=== PATIENT | female | born 1930 | race Caucasian/White ===

== ENCOUNTER 2016-11-02 23:07 | Emergency (ER) ==
[2016-11-03 00:22] LABS: MANUAL DIFF NEEDED? NO
[2016-11-03 00:40] LABS: BASO% 0.4 % (0.0-0.8); EOS# 0.28 X1000 (0.0-0.7); EOS% 3.8 % (0.0-10.0); HEMATOCRIT 33.8 % (37.0-47.0); LYMPH% 40.9 % (20.5-51.1); MCH 29.9 PG (27-31); MCHC 32.5 g/dL (33-37); MCV 91.8 FL (81-99); MONO# 0.55 X1000 (0.11-0.59); MONO% 7.5 % (1.7-9.3); MPV 11.4 FL (7.4-10.4); NEUT% 47.4 % (42.2-75.2); PLT 169 X1000 (130-400); RBC 3.68 XMIL (4.2-5.4)
[2016-11-03 00:50] LABS: URINE MICRO REVIEW NEEDED? NO; URINE SOURCE CLEAN CATCH
[2016-11-03 00:52] LABS: BILIRUBIN URINE NEGATIVE (NEGATIVE); BLOOD URINE NEGATIVE (NEGATIVE); COLOR YELLOW; GLUCOSE URINE NEGATIVE (NEGATIVE); LEUKOCYTES URINE LARGE (NEGATIVE); NITRITE URINE POSITIVE (NEGATIVE); PH URINE 5.5; PROTEIN URINE TRACE mg/dL (NEGATIVE); SP GRAVITY URINE 1.017; TURBIDITY URINE HAZY (CLEAR); UR EPITHELIAL CELLS <10 /HPF (<10); URINE BACTERIA 4+ /HPF; URINE CULTURE NEEDED? YES; URINE RBC <10 /HPF (<10); URINE WBC TNTC /HPF (<10); UROBILINOGEN URINE NORMAL (NORMAL)
[2016-11-03 00:56] LABS: ALBUMIN 3.7 g/dL (3.5-5.0); CALCIUM 9.5 mg/dL (8.8-10.2); POTASSIUM 4.5 mmol/L (3.5-5.1); TOTAL BILIRUBIN 0.18 mg/dL (0.20-1.00); TOTAL PROTEIN 6.7 g/dL (6.3-8.3)
[2016-11-03] MEDS ORDERED: NORCO-10 PO ONE (00:57)
[2016-11-03] MEDS ORDERED: MACROBID PO ONE (01:01)
--- NOTE | 2016-11-03 01:04 | PROVIDER DOCUMENTATION ---
HPI-Headache - General Chief Complaint: Headache Stated Complaint: DIZZY Time Seen by Provider: 11/02/16 23:37 Source: patient Allergies/Adverse Reactions: Patient Allergies Allergy/AdvReac Type Severity Reaction Status Date / Time No Known Allergies Allergy Verified 07/09/15 17:45 Home Medications: Aspirin 325 mg PO DAILY 01/04/14 Calcium Carbonate [Caltrate 600] 600 mg PO BID 01/04/14 Ferrous Fumarate [Iron] 65 mg PO QAM 01/04/14 Levothyroxine [Synthroid] 50 mcg PO DAILY 01/04/14 Pregabalin [Lyrica] 75 mg PO BID 01/04/14 Famotidine [Pepcid] 20 mg PO QHS 07/29/14 Montelukast [Singulair] 10 mg PO DAILY 07/29/14 Donepezil [Aricept] 10 mg PO DAILY 07/09/15 Furosemide 40 mg PO DAILY 10/04/15 Losartan [Cozaar] 50 mg PO DAILY 10/04/15 - History of Present Illness-Headache Nature of Presenting Problem: 85 year old F presents to the ED with a cc of a headache, dizziness, and feeling like she was going to pass out. PT states it began around 2144. Denies nausea, vomiting, and syncope. Pt c/o a headache. Headache Location: reports: global Quality of Pain: reports: aching Severity: reports: mild Onset/Duration: reports: 4-6 hours ago Timing: reports: still present Headache severity at the maximum: mild Modifying Factors: improves with: nothing Associated Symptoms: reports: headache, dizziness Similar Symptoms Previously?: No Recently seen or treated by another doctor?: No Review of Systems - Adult - REVIEW OF SYSTEMS - ADULT Constitutional: denies: chills, fever Eyes: reports: no symptoms reported Ears, Nose, Mouth & Throat: reports: no symptoms reported Cardiovascular: denies: chest pain, palpitations Respiratory: denies: cough, shortness of breath Gastrointestinal: denies: abdominal pain, nausea, vomiting Genitourinary: denies: dysuria, hematuria Musculoskeletal: denies: back pain, muscle weakness Integumentary: reports: no symptoms reported Neurological: reports: dizziness/vertigo, headache/migraines Psychiatric: reports: no symptoms reported Endocrine: reports: no symptoms reported Hematologic/Lymphatic: reports: no symptoms reported Allergic/Immunologic: reports: no symptoms reported All Other Systems: Reviewed and Negative Past History - Adult - PAST MEDICAL HISTORY-ADULT Review of Records: reports: Nursing Assessment Review, Medications Reviewed Major Childhood Illnesses: reports: denies history Cardiovascular: reports: CHF, HTN, hyperlipidemia, [place] Gastrointestinal: reports: GERD Obstetrical/Gynecological: reports: other (breast cancer) Musculoskeletal: reports: arthritis (osteo) Endocrine/Immune: reports: Diabetes, thyroid disorder (hypothyroidism) Other Conditions: reports: skin disorder (skin cancer on the scalp) - PRIOR SURGERIES/PROCEDURES Surgical/Procedure History: reports: cholecystectomy, hysterectomy, other (left breast lumpectomy/skin cancer removed from scalp) - PRIOR HOSPITALIZATIONS Prior Hospitalizations: reports: none - IMMUNIZATION STATUS Childhood Immunizations: UTD Flu Vaccine: UTD - FAMILY HISTORY Family History: reviewed, not pertinent - SOCIAL HISTORY Smoking: non-smoker Substance Use: none/never Alcohol Use Frequency: never Physical Exam- Neurological - Physical Exam-Neuro Initial Vital Signs Reviewed: Yes General Appearance: appears well, alert, no apparent distress Eye Exam: bilateral eye: normal inspection, PERRL, EOMI Head Injury: no evidence of injury Respiratory: chest non-tender, lungs clear, normal breath sounds Cardiovascular: normal peripheral pulses, regular rate, rhythm, no edema Abdominal Exam: normal bowel sounds, non tender, soft Extremity: other (left CVA tenderness) nut former Exam: normal hearing, normal speech, PERRL Coordination/Gait: normal finger to nose, normal gait, negative Romberg's sign Motor/Sensory: no motor deficit, no sensory deficit, no pronator drift, negative Babinski's sign Neurologic: nut former II-XII nml as tested, no motor/sensory deficits Integumentary: normal color, normal turgor, warm/dry Psych/Mental Status: AL, normal mood/affect, normal thought content, normal thought process, oriented x 3 Progress - PLAN OF CARE/RESULTS Progress/Plan/Lab Results: plan of care: imaging, labs, medications, EKG Orders Category Date Time Status HEAD W/O CONTRAST [CT] Stat Exams 11/02/16 23:38 Taken CBC WITH ELECTRONIC DIFF [HEME] Stat Lab 11/03/16 00:10 Completed CMP [COMPREHENSIVE METABOLIC PANEL] [CHEM] Stat Lab 11/03/16 00:10 Completed UA Reflex [URINALYSIS W/POSS RFLX CULT] [URINALYSIS] Lab 11/03/16 00:38 Completed Stat Hydrocodone/APAP 10 mg/325 mg [[place]-10] Med 11/03/16 00:57 Discontinued 1 each PO NOW ONE Nitrofurantoin Burt/Macrocryst [Macrobid] Med 11/03/16 01:01 Once 100 mg PO NOW ONE EKG [EKG] Stat Ther 11/02/16 23:19 Ordered Laboratory Tests 11/03/16 11/03/16 11/03/16 00:10 00:10 00:38 WBC 7.34 RBC 3.68 L Hgb 11.0 L Hct 33.8 L MCV 91.8 MCH 29.9 MCHC 32.5 L RDW Std Deviation 14.7 H Plt Count 169 MPV 11.4 H Immature Gran % (Auto) 0.0 Neut % (Auto) 47.4 Lymph % (Auto) 40.9 [place] % (Auto) 7.5 Eos % (Auto) 3.8 Baso % (Auto) 0.4 Immature Gran # (Auto) 0.00 Neut # (Auto) 3.48 Lymph # (Auto) 3.00 [place] # (Auto) 0.55 Eos # (Auto) 0.28 Baso # (Auto) 0.03 Sodium 143 Potassium 4.5 Chloride 99 Carbon Dioxide 31 Anion Gap 13 BUN 33 H Creatinine 1.6 H Estimated GFR/1.73 m2 31 BUN/Creatinine Ratio 21 Glucose 158 H Calculated Osmolality 296 Calcium 9.5 Total Bilirubin 0.18 L AST 84 H ALT 57 H Alkaline Phosphatase 99 Total Protein 6.7 Albumin 3.7 Globulin 3.0 Albumin/Globulin Ratio 1.2 Urine Source CLEAN CATCH Urine Color YELLOW Urine Turbidity HAZY Urine pH 5.5 Ur Specific [place] 1.017 Urine Protein TRACE A Ur Glucose (Stick) NEGATIVE Ur Ketones (Stick) NEGATIVE Urine Blood NEGATIVE Urine Nitrite POSITIVE A Urine Bilirubin NEGATIVE Urobilinogen Dipstick NORMAL Urine Leukocytes LARGE A Urine WBC (Auto) TNTC A Urine RBC (Auto) <10 U Epithel Cells (Auto) <10 Urine Bacteria (Auto) 4+ Vital Signs - 24 hr 11/02/16 23:20 Temperature 98 F Pulse Rate 62 Respiratory 18 Rate Blood Pressure 144/61 O2 Sat by Pulse 98 Oximetry Pt given results and will be d/c home w/ rx to follow up with PCP. Pt verbally understood instructions. PT remained clinically stable throughout the course of the ED stay and will return if symptoms worsen. - EKG 1 Time of EKG reading by physician:: 23:20 EKG Read and Signed by:: Prakash Melo EKG Interpretation (*Must complete 3 of following elements*): Normal Rate: 62 Rhythm: NSR [place]: normal - CT/MRI 1 CT Study: Head Impression: Normal (calcified meningioma, unchanged. No acute intracranial abnormality is identified.) Departure - Departure Time of Disposition Order: 01:02 DIAGNOSIS: UTI (urinary tract infection) Qualifiers: Urinary tract infection type: acute cystitis Hematuria presence: without hematuria Qualified Code(s): N30.00 - Acute cystitis without hematuria Head ache Qualifiers: Headache type: unspecified Headache chronicity pattern: acute headache Intractability: not intractable Qualified Code(s): R51 - Headache Disposition: HOME 01 Certified Medical Emergency: Emergent Condition: Good Additional Instructions: Follow up with primary care doctor. Return to ED for any new or worsening symptoms ED Follow Up Instructions: You have been treated by a care provider in the Emergency Department. These instructions are being provided to you so you can have an understanding of how to care for yourself upon discharge. Upon discharge from the Emergency Department, you are responsible for making arrangements for follow-up care by a physician of your choice. Take all prescribed medications as directed. Return to the Emergency Department immediately for any new or worsening symptoms. You may call the Physician Referral phone number at [phone] to obtain a list of Physicians who are taking new patients. Referrals: Scooter Infante MD [Primary Care Provider] - Instructions: Migraine Headache, [id number] Attestation - Scribe Verification/Attestation Scribe:: Krystle Pang Acting as Scribe for:: Prakash Melo Scribe documention review:: This chart was documented by a scribe and accurately reflects the service the provider performed and the decisions made by the provider. Physician Attestation - Physician Attestation I, the provider, attest to the following statement:: Prakash Melo Physician documentation Attestation:: This documentation recorded by the scribe accurately reflects the service I personally performed and the decisions made by me.
[2016-11-03 01:30] VITALS: BP 142/78
--- NOTE | 2016-11-03 05:49 | EKG Report ---
Test Performed on : 11/02/2016 11:20:14 PM Test Reason : CP Blood Pressure : / mmHG Vent. Rate : 062 BPM Atrial Rate : 062 BPM P-R Int : 170 ms QRS Dur : 070 ms QT Int : 420 ms P-R-T Axes : 050 003 012 degrees QTc Int : 426 ms Normal sinus rhythm. Normal ECG When compared with ECG of 03-OCT-2015 18:08, premature atrial complexes. are no longer present Unconfirmed Result
--- NOTE | 2016-11-03 07:55 | Diag Imaging Result Document ---
PROCEDURE NAME: HEAD W/O CONTRAST - 11/02/[address]: COMPARISON: 10/03/2015. FINDINGS: Stable densely calcified meningioma at the right side of the katie and midbrain. No midline shift. No intracranial hemorrhage. The skull is intact. The sinuses, mastoids, and middle ears are clear. IMPRESSION: No acute disease or change from prior.
== END 2016-11-03 01:29 | disposition home or self-care (01) ==
LOC: ED 23:07
DX: N30.00 Acute cystitis without hematuria (principal); R51 Headache; R42 Dizziness and giddiness; I50.9 Heart failure, unspecified; I10 Essential (primary) hypertension; E78.5 Hyperlipidemia, unspecified; I25.2 Old myocardial infarction; K21.9 Gastro-esophageal reflux disease without esophagitis; Z79.899 Other long term (current) drug therapy; M19.90 Unspecified osteoarthritis, unspecified site; E11.9 Type 2 diabetes mellitus without complications; E03.9 Hypothyroidism, unspecified; Z79.82 Long term (current) use of aspirin; Z85.3 Personal history of malignant neoplasm of breast; Z85.828 Personal history of other malignant neoplasm of skin
CPT/HCPCS: 36415; 70450; 80053; 81001; 82948; 85025; 87077; 87088; 87186; 93005

== ENCOUNTER 2019-11-11 14:09 | Inpatient (IN) ==
--- NOTE | 2019-11-11 14:57 | Diag Imaging Result Doc PS360 ---
EXAM: CHEST-2 VIEWS HISTORY: sob TECHNIQUE: Two views COMPARISON: 02/20/2019 FINDINGS: Poor inspiratory effort. No cardiomegaly. There are sternal wires. Mild central vascular prominence with tiny effusions. Increased interstitial markings in the right costophrenic angle. There is a calcified granuloma in the left lung base. IMPRESSION: Mild vascular distention with a small infiltrate versus atelectasis in the right costophrenic angle Electronically signed by Franco Soto 11/11/2019 2:55 PM
--- NOTE | 2019-11-11 15:46 | PROVIDER DOCUMENTATION ---
HPI-Respiratory General - General Chief Complaint: Shortness of Breath Stated Complaint: SOB Time Seen by Provider: 11/11/19 14:30 Source: patient Allergies/Adverse Reactions: Patient Allergies Allergy/AdvReac Type Severity Reaction Status Date / Time No Known Allergies Allergy Verified 11/11/19 16:00 Home Medications: Home Medication List Medication Instructions Recorded Confirmed Last Taken Type Ferrous Fumarate [Iron] 65 mg PO HS 01/04/14 11/11/19 11/10/19 18:00 History Levothyroxine [Synthroid] 75 mcg PO AC 01/04/14 11/11/19 11/11/19 09:00 History Pregabalin [Lyrica] 75 mg PO BID 01/04/14 11/11/19 11/11/19 09:00 History Donepezil [Aricept] 10 mg PO AC 07/09/15 11/11/19 11/11/19 09:00 History Losartan [Cozaar] 50 mg PO AC 10/04/15 11/11/19 11/11/19 09:00 History Sitagliptin Phosphate [Januvia] 100 mg PO AC 11/08/18 11/11/19 11/11/19 09:00 History Aspirin 81 mg PO DAILY chewtab 02/01/19 11/11/19 11/11/19 09:00 Rx Metoprolol [Lopressor] 25 mg PO BID tab 02/01/19 11/11/19 11/11/19 09:00 Rx Montelukast [Singulair] 10 mg PO DAILY tab 02/01/19 11/11/19 11/11/19 09:00 Rx Nitroglycerin Sl [Nitroglycerin] 0.4 mg SUBLINGUAL Q5M PRN PRN tab 02/01/19 11/11/19 Unknown Rx Pantoprazole [Protonix] 40 mg PO DAILY tab 02/01/19 11/11/19 11/11/19 09:00 Rx Magnesium Oxide [Mag-Ox] 400 mg PO DAILY 11/11/19 11/11/19 11/10/19 18:00 History - History of Present Illness-Resp Nature of Presenting Problem: 88 yr old F, hx of [place] with bypass, HTN, DM, GI cancer, presents with sudden onset SOB that began yesterday while she was at rest. Pt is on room air at home, typically functions well and completes ADLs. Reports symptoms started yesterday and progressed. Denies cough or fever. Hx of pneumonia treated last year. Onset/Duration: reports: 24 hours ago Timing: reports: still present, getting worse Context: denies: recent foreign travel Exposure: reports: unknown cause Cough Quality/Degree: reports: no cough Episode Frequency: occasional episodes Current Respiratory Medication Therapy: Initiated none Modifying Factors: improves with: nothing Similar Symptoms Previously?: Yes Review of Systems - Adult - REVIEW OF SYSTEMS - ADULT Constitutional: reports: no symptoms reported Eyes: reports: no symptoms reported Ears, Nose, Mouth & Throat: reports: no symptoms reported Cardiovascular: reports: no symptoms reported Respiratory: reports: see HPI Gastrointestinal: reports: no symptoms reported Genitourinary: reports: no symptoms reported Musculoskeletal: reports: no symptoms reported Integumentary: reports: no symptoms reported Past History - Adult - PAST MEDICAL HISTORY-ADULT Review of Records: reports: Nursing Assessment Review Major Childhood Illnesses: reports: denies history Cardiovascular: reports: CHF, HTN, hyperlipidemia, [place] Respiratory: reports: denies history Gastrointestinal: reports: GERD Obstetrical/Gynecological: reports: other (breast cancer) Genitourinary: reports: denies history Musculoskeletal: reports: arthritis (osteo) Neurological: reports: denies history Endocrine/Immune: reports: Diabetes, thyroid disorder (hypothyroidism) Other Conditions: reports: skin disorder (skin cancer on the scalp) - PRIOR SURGERIES/PROCEDURES Surgical/Procedure History: reports: cholecystectomy, hysterectomy, other (left breast lumpectomy/skin cancer removed from scalp) - PRIOR HOSPITALIZATIONS Prior Hospitalizations: reports: none - IMMUNIZATION STATUS Childhood Immunizations: UTD Flu Vaccine: UTD - FAMILY HISTORY Family History: reviewed, not pertinent Physical Exam-General - PHYSICAL EXAM-ADULT Initial Vital Signs Reviewed: Yes - CONSTITUTIONAL General Appearance: appears well, alert, no apparent distress - EYES Eyes: PERRL/EOMI - HEAD, EARS, NOSE, MOUTH & THROAT HENMT: normocephalic/atraumatic, moist mucous membranes - RESPIRATORY Respiratory: chest non-tender, other (diminshed at the lung bases, clear to asucultation at the upper bases, no wheezes appreciated) - CARDIOVASCULAR Cardiovascular: regular rate, rhythm - HEART Score HEART Score: History: Slightly Suspicious HEART Score: ECG: Normal HEART Score: Age: > or = 65 Years HEART Score: Risk Factors for Atherosclerotic Disease: > or = 3 Risk Factors or History of Atherosclerotic Disease Progress - PLAN OF CARE/RESULTS Progress/Plan/Lab Results: Vital Signs - 8 hr 11/11/19 14:10 11/11/19 14:22 11/11/19 14:24 Temperature 98.2 F Pulse Rate 66 66 Respiratory Rate 18 24 Blood Pressure 161/65 166/72 O2 Sat by Pulse Oximetry 96 91 L 11/11/19 14:33 11/11/19 14:45 11/11/19 15:00 Temperature Pulse Rate 64 67 60 Respiratory Rate 23 21 18 Blood Pressure 147/65 O2 Sat by Pulse Oximetry 94 L 94 L 93 L 11/11/19 15:01 11/11/19 15:15 11/11/19 15:30 Temperature Pulse Rate 65 61 60 Respiratory Rate 16 18 25 H Blood Pressure O2 Sat by Pulse Oximetry 92 L 94 L 95 11/11/19 15:45 11/11/19 16:00 11/11/19 16:01 Temperature Pulse Rate 62 64 59 L Respiratory Rate 18 23 20 Blood Pressure 181/67 O2 Sat by Pulse Oximetry 98 98 97 11/11/19 16:15 11/11/19 16:30 11/11/19 16:45 Temperature Pulse Rate 58 L 56 L 57 L Respiratory Rate 20 17 15 Blood Pressure O2 Sat by Pulse Oximetry 97 96 97 11/11/19 16:59 11/11/19 17:01 11/11/19 17:15 Temperature Pulse Rate 59 L 58 L 54 L Respiratory Rate 23 20 20 Blood Pressure 168/64 O2 Sat by Pulse Oximetry 97 96 97 11/11/19 17:30 Temperature Pulse Rate 60 Respiratory Rate 21 Blood Pressure O2 Sat by Pulse Oximetry 95 Laboratory Results - last 24 hr 11/11/19 11/11/19 11/11/19 15:55 15:55 15:55 WBC 8.25 RBC 3.53 L Hgb 9.8 L Hct 32.2 L MCV 91.2 MCH 27.8 MCHC 30.4 L RDW Std Deviation 16.1 H Plt Count 166 MPV 11.5 H Immature Gran % (Auto) 0.0 Neut % (Auto) 65.0 Lymph % (Auto) 30.2 [place] % (Auto) 4.1 Eos % (Auto) 0.6 Baso % (Auto) 0.1 Immature Gran # (Auto) 0.00 Neut # (Auto) 5.36 Lymph # (Auto) 2.49 [place] # (Auto) 0.34 Eos # (Auto) 0.05 Baso # (Auto) 0.01 PT INR PTT (Actin FS) D-Dimer, Quantitative Sodium 144 Potassium 5.1 Chloride 108 H Carbon Dioxide 26 Anion Gap 10 BUN 19 Creatinine 1.7 H Estimated GFR/1.73 m2 28 BUN/Creatinine Ratio 11 Glucose 98 Calculated Osmolality 289 Calcium 8.7 L Total Bilirubin 0.16 L AST 20 ALT 9 L Alkaline Phosphatase 74 Creatine Kinase 67 Troponin T High Sens [id number]-Z-[id number] Pept 89209 H Total Protein 5.9 L Albumin 3.4 L Globulin 2.5 Albumin/Globulin Ratio 1.4 Urine Source Urine Color Urine Turbidity Urine pH Ur Specific [place] Urine Protein Ur Glucose (Stick) Ur Ketones (Stick) Urine Blood Urine Nitrite Urine Bilirubin Urobilinogen Dipstick Urine Leukocytes Urine WBC (Auto) Urine RBC (Auto) U Epithel Cells (Auto) Urine Bacteria (Auto) Urine Crystals Small Round Cells Urine Casts Urine Yeast-like Cells 11/11/19 11/11/19 11/11/19 15:55 15:55 16:16 WBC RBC Hgb Hct MCV MCH MCHC RDW Std Deviation Plt Count MPV Immature Gran % (Auto) Neut % (Auto) Lymph % (Auto) [place] % (Auto) Eos % (Auto) Baso % (Auto) Immature Gran # (Auto) Neut # (Auto) Lymph # (Auto) [place] # (Auto) Eos # (Auto) Baso # (Auto) PT 15.7 INR 1.23 PTT (Actin FS) 27.8 D-Dimer, Quantitative 5.02 H Sodium Potassium Chloride Carbon Dioxide Anion Gap BUN Creatinine Estimated GFR/1.73 m2 BUN/Creatinine Ratio Glucose Calculated Osmolality Calcium Total Bilirubin AST ALT Alkaline Phosphatase Creatine Kinase Troponin T High Sens 22 H* [id number]-M-[id number] Pept Total Protein Albumin Globulin Albumin/Globulin Ratio Urine Source CLEAN CATCH Urine Color YELLOW Urine Turbidity TURBID Urine pH 6.5 Ur Specific [place] 1.021 Urine Protein 100 A Ur Glucose (Stick) NEGATIVE Ur Ketones (Stick) NEGATIVE Urine Blood SMALL A Urine Nitrite POSITIVE A Urine Bilirubin NEGATIVE Urobilinogen Dipstick NORMAL Urine Leukocytes LARGE A Urine WBC (Auto) TNTC A Urine RBC (Auto) 20-40 A U Epithel Cells (Auto) <10 Urine Bacteria (Auto) 2+ Urine Crystals NONE SEEN Small Round Cells TRANS PRESENT Urine Casts NONE SEEN Urine Yeast-like Cells NONE SEEN Orders Category Date Time Status Admit - [facility] Routine AdmDCTranf 11/11/19 17:18 Active Activity - Bed Rest with BRP ORDERED Care 11/11/19 17:20 Active Call Admitting on Arrival AT ADMISSION Care 11/11/19 17:21 Active Cardiac Monitoring DIRECTED Care 11/11/19 14:15 Active Neurological Check Q4H Care 11/11/19 17:21 Active Oxygen Therapy- ED Nursing DIRECTED Care 11/11/19 14:15 Active Saline Loc NOW Care 11/11/19 14:15 Active Vital Signs Order ARRIVAL TO ROOM Care 11/11/19 17:20 Active Z-Document. for Tele Applied ORDERED Care 11/11/19 17:22 Active Heart Healthy Diet Diet 11/11/19 17:21 Active CHEST-2 VIEWS [RAD] Stat Exams 11/11/19 14:15 Completed LUNG SCAN / VQ [NM] Stat Exams 11/11/19 17:17 Taken CBC WITH ELECTRONIC DIFF [HEME] Stat Lab 11/11/19 15:55 Completed CK PROFILE [SP CHEM] Stat Lab 11/11/19 15:55 Completed COMPREHENSIVE METABOLIC PANEL [CHEM] Stat Lab 11/11/19 15:55 Completed D-DIMER [COAG] Stat Lab 11/11/19 15:55 Completed PRO B-NATRIURETIC PEPTIDE Stat Lab 11/11/19 15:55 Completed PROTIME WITH INR [COAG] Stat Lab 11/11/19 15:55 Completed PTT [COAG] Stat Lab 11/11/19 15:55 Completed TROPONIN T HIGH SENSITIVITY Stat Lab 11/11/19 15:55 Completed UA Reflex [URINALYSIS W/POSS RFLX CULT] [URINALYSIS] Lab 11/11/19 16:16 Completed Stat URINE MANUAL MICROSCOPIC [URINALYSIS] Stat Lab 11/11/19 16:16 Completed CefTRIAXONE [Rocephin] 1 gm Med 11/11/19 17:22 Discontinued 0.9% Sodium Chloride Inj [Ns] 50 ml IV NOW Furosemide [Lasix] Med 11/11/19 17:22 Discontinued 40 mg IV NOW ONE Oxygen Device Routine Oth 11/11/19 17:21 Completed Telemetry [OM.EQ] Routine Oth 11/11/19 17:20 Active EKG [EKG] Stat Ther 11/11/19 14:15 Draft Transfer/Admit Order [TRANSFER] Routine Transfer 11/11/19 17:20 Completed Pt has elevated d-dimer, as well as elevated BNP; spoke with Dr. Infante, who agrees to accept for admission - additional management to include diuresis and oxygenation; V/Q scan to be done on the floor. Pt and family made aware of findings and plan. Result Diagrams: 11/11/19 15:55 11/11/19 15:55 - CONSULTS/PCP/HOSPITALIST Notification #1 *Consult/PCP/Hospitalist*: Dr. Infante Time Discussed: 17:20 Consult Disposition: Admit Departure - Departure Date of Disposition Decision: 11/11/19 Time of Disposition Decision: 17:24 DIAGNOSIS: Elevated troponin, SOB (shortness of breath) CHF exacerbation Qualifiers: Heart failure type: unspecified Qualified Code(s): I50.9 - Heart failure, unspecified Disposition: ADMITTED INPATIENT 09 Certified Medical Emergency: Emergent Condition: Fair - Critical Care Note This patient required my direct & personal management of CC.: No Attestation - Physician/ CARMEN Attestation Patient care was provided by Advanced Practice Provider:: No The physician spent face to face time with patient:: Yes Advanced Practice Provider documentation review:: Supervising physician onsite and consulted in the evaluation and care of this patient. The physician did have a face to face encounter with the patient.
[2019-11-11 16:09] LABS: BASO# 0.01 X1000 (0.0-0.2); BASO% 0.1 % (0.0-0.8); EOS# 0.05 X1000 (0.0-0.7); EOS% 0.6 % (0.0-10.0); HEMATOCRIT 32.2 % (37.0-47.0); HEMOGLOBIN 9.8 g/dL (12.0-16.0); LYMPH# 2.49 X1000 (1.2-3.4); LYMPH% 30.2 % (20.5-51.1); MCH 27.8 PG (27-31); MCHC 30.4 g/dL (33-37); MCV 91.2 FL (81-99); MONO# 0.34 X1000 (0.11-0.59); MONO% 4.1 % (1.7-9.3); MPV 11.5 FL (7.4-10.4); NEUT# 5.36 X1000 (1.4-6.5); PLT 166 X1000 (130-400); RBC 3.53 XMIL (4.2-5.4); RDW 16.1 % (11.5-14.5); WBC 8.25 X1000 (4.8-10.8)
[2019-11-11 16:18] LABS: INR 1.23; PROTIME 15.7 Seconds (11.0-16.0)
[2019-11-11 16:19] LABS: PTT 27.8 Seconds (22.3-41.8)
[2019-11-11 16:20] LABS: URINE SOURCE CLEAN CATCH
[2019-11-11 16:30] LABS: ALB/GLOB RATIO 1.4; ALBUMIN 3.4 g/dL (3.5-5.0); CALCIUM 8.7 mg/dL (8.8-10.2); CREATININE 1.7 mg/dL (0.5-0.9); POTASSIUM 5.1 mmol/L (3.5-5.1); TOTAL BILIRUBIN 0.16 mg/dL (0.20-1.00); TOTAL PROTEIN 5.9 g/dL (6.3-8.3)
[2019-11-11 16:31] LABS: BILIRUBIN URINE NEGATIVE (NEGATIVE); BLOOD URINE SMALL (NEGATIVE); COLOR YELLOW; GLUCOSE URINE NEGATIVE (NEGATIVE); KETONE URINE NEGATIVE (NEGATIVE); LEUKOCYTES URINE LARGE (NEGATIVE); NITRITE URINE POSITIVE (NEGATIVE); PH URINE 6.5; PROTEIN URINE 100 mg/dL (NEGATIVE); SP GRAVITY URINE 1.021; TURBIDITY URINE TURBID (CLEAR); UROBILINOGEN URINE NORMAL (NORMAL)
[2019-11-11 16:38] LABS: UR EPITHELIAL CELLS <10 /HPF (<10); URINE BACTERIA 2+ /HPF; URINE RBC 20-40 /HPF (<10); URINE WBC TNTC /HPF (<10)
[2019-11-11 16:45] LABS: URINE CASTS NONE SEEN; URINE CRYSTALS NONE SEEN; URINE SMALL ROUND CELLS TRANS PRESENT; URINE YEAST NONE SEEN
--- NOTE | 2019-11-11 16:45 | EKG Report ---
Test Performed on : 11/11/2019 2:19:04 PM Test Reason : sob Blood Pressure : / mmHG Vent. Rate : 063 BPM Atrial Rate : 063 BPM P-R Int : 136 ms QRS Dur : 070 ms QT Int : 426 ms P-R-T Axes : 007 018 009 degrees QTc Int : 435 ms Sinus rhythm. with premature atrial complexes. Septal infarct , age undetermined Abnormal ECG When compared with ECG of 30-JAN-2019 07:00, premature ventricular complexes. are no longer present premature atrial complexes. are now present Septal infarct is now present Unconfirmed Result
[2019-11-11] MEDS ORDERED: LASIX IV ONE (17:22)
[2019-11-11] MEDS ORDERED: ROCEPHIN 1 GM in NS 50 ML IV ONE (17:22)
[2019-11-11 18:11] LABS: URINE SOURCE CATH
[2019-11-11 18:21] LABS: BILIRUBIN URINE NEGATIVE (NEGATIVE); BLOOD URINE SMALL (NEGATIVE); COLOR YELLOW; GLUCOSE URINE NEGATIVE (NEGATIVE); KETONE URINE TRACE mg/dL (NEGATIVE); LEUKOCYTES URINE LARGE (NEGATIVE); NITRITE URINE NEGATIVE (NEGATIVE); PH URINE 6.5; PROTEIN URINE 100 mg/dL (NEGATIVE); SP GRAVITY URINE 1.018; TURBIDITY URINE TURBID (CLEAR); UROBILINOGEN URINE NORMAL (NORMAL)
[2019-11-11 18:25] LABS: UR EPITHELIAL CELLS <10 /HPF (<10); URINE BACTERIA 4+ /HPF; URINE RBC 20-40 /HPF (<10); URINE WBC TNTC /HPF (<10)
[2019-11-11 18:34] LABS: URINE CASTS NONE SEEN; URINE CRYSTALS NONE SEEN; URINE SMALL ROUND CELLS TRANS PRESENT; URINE YEAST PRESENT
[2019-11-11] MEDS ORDERED: CATAPRES PO ONE (18:44)
--- NOTE | 2019-11-11 20:30 | Diag Imaging Result Doc PS360 ---
EXAM: LUNG SCAN / VQ HISTORY: Dyspnea, elevated creat, elevated d-dimer TECHNIQUE: Nuclear medicine ventilation/perfusion lung scan COMPARISON: Plain films taken earlier FINDINGS: 40.5 mCi DTPA used for the ventilation images. 6.1 mCi technetium MAA given intravenously for the perfusion images. Small matching defect in the right lung base. Plain film demonstrates a small infiltrate and effusion. No other perfusion defects. No ventilation perfusion mismatch. IMPRESSION: Low probability for pulmonary embolus. Electronically signed by Franco Soto 11/11/2019 8:28 PM
[2019-11-11] MEDS ORDERED: NITROGLYCERIN SL PRN (20:59)
[2019-11-11] MEDS ORDERED: XANAX PO PRN (21:03)
[2019-11-11] MEDS ORDERED: CATAPRES PO PRN (21:09)
[2019-11-11] MEDS: NORCO-5 PO PRN (22:20)
[2019-11-11] MEDS: LOPRESSOR PO SCH (22:20)
[2019-11-11] MEDS: FERROUS SULFATE PO SCH (22:20)
[2019-11-11] MEDS: LYRICA PO SCH (22:20)
--- NOTE | 2019-11-12 04:47 | HISTORY AND PHYSICAL ---
CHIEF COMPLAINT: Shortness of breath. HISTORY OF PRESENT ILLNESS: Ms Bernal, an 88-year-old white female patient, started having problem with shortness of breath last night. The patient is a vague and poor historian. The patient had shortness of breath. She was gasping for air. She was not able to speak a full sentence. The patient was managed to sleep last night and then again this morning. She was short of breath. She called her daughter. According to daughter, she was not able to talk; she was whispering and short of breath. Daughter brought her to the emergency room, evaluated by ER physician. Her D- dimer was elevated. Her proBNP was also very high. They were concerned about congestive heart failure, possible DVT and pulmonary embolism, and they decided to admit the patient for further care. The patient did have mild cough with scanty sputum production, chills, no high-grade fever. The patient had swelling in the legs, some orthopnea, but no PND. The patient was feeling weak, tired and no energy. She was getting very short of breath easily. Her oral intake was poor. No nausea or vomiting. No diarrhea, blood or mucus in the stool. The patient does have arthritic pain in the knee, at times pain in the lower back. Patient does have urinary frequency, urgency, at times mild dysuria. Urinalysis done in the ER did reveal UTI, unquantified weight loss. ALLERGIES: No known drug allergy. MEDICATIONS: Includes ferrous fumarate, Synthroid, Lyrica, Aricept, Cozaar, Januvia, metoprolol, Singulair, nitroglycerin, Protonix, magnesium oxide. Patient is on [place]. PAST MEDICAL HISTORY: Breast cancer. [place] cancer on the scalp. An IDDM, hypothyroidism. Dementia, hypertension, osteoarthritis, peripheral neuropathy, congestive heart failure, coronary artery disease, anemia, dementia, history of breast cancer. PERSONAL HISTORY: Single. Nonsmoker. Denied alcohol or substance abuse. Needs minimal assistance in activities of daily living. REVIEW OF SYSTEMS: As per HPI. Otherwise unobtainable. PHYSICAL EXAMINATION: GENERAL: Elderly white female patient in mild distress. VITAL SIGNS: Blood pressure 176/76, pulse 60, respirations 17, temperature 97.8 degrees. SKIN: Senile turgor. HEENT: Head atraumatic, normocephalic. [place] conjunctivae. Anicteric sclerae. Extraocular muscle movement normal. Fundus cannot be penetrated. Good oral hygiene. No tonsillopharyngeal congestion or exudate. Ears and nose benign. NECK: Supple. No JVD, thyromegaly or lymphadenopathy. CHEST: Bibasilar crepitation. No rales. Occasional wheezing. CARDIOVASCULAR: S1 and S2 heard. 2/6 systolic murmur at the apex. ABDOMEN: Soft, globular. Bowel sounds present. Mild hypogastric tenderness. EXTREMITIES: No cyanosis, clubbing. No acute DVT. 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 Crepitation in both the knee joints. Vague tenderness lumbosacral spine. LABORATORY DATA: Hemoglobin 9.8, hematocrit 32.2, platelet count 166,000, WBC count 8.25. D-dimer 5.02, PT/INR 1.23. BUN 19, creatinine 1.7. The troponin was 22. ProBNP 10,420. Urinalysis: Large leukocyte, wek-ctrgdsys-wk-count WBC, 20 to 40 RBC. X-RAY DATA: Chest x-ray revealed mild vascular distention with small infiltrate versus atelectasis in the right costophrenic angle. ASSESSMENT: Patient admitted with shortness of breath, sudden onset. D-dimer was elevated more than 5. We did a ventilation perfusion scan, which was low probability for pulmonary embolism. Other problems includes congestive heart failure. Her proBNP was more than 10,000. Patient does have urinary tract infection. Started her on antibiotics. Other consideration is bronchitis, early pneumonia cannot be ruled out, diabetes mellitus, hypertension, history of breast cancer, [place] cell cancer on the scalp, gastritis and reflux disease, dementia, hypomagnesemia ,hypothyroidism. PLAN: Admit the patient. IV antibiotics. Chow[place] catheter. Close observation. Overall plan discussed at length with the patient and her daughter; they are in agreement. As per the patient's and family's wishes, I am going to make her DNR 1. cc: Scooter Infante MD
[2019-11-12] MEDS: NORCO-5 PO PRN (06:05)
[2019-11-12] MEDS: JANUVIA PO SCH ×3 (06:05→12:37)
[2019-11-12] MEDS: COZAAR PO SCH ×3 (06:05→12:36)
[2019-11-12] MEDS: PRILOSEC PO SCH (06:06)
[2019-11-12] MEDS: SYNTHROID PO SCH (06:06)
[2019-11-12] MEDS: ARICEPT PO SCH ×3 (06:06→12:38)
--- NOTE | 2019-11-12 07:16 | PROGRESS NOTE ---
DATE: 11/12/2019 SUBJECTIVE: Ms. Bernal is doing better. Complaining of generalized pain. The patient was getting [place] 10 b.i.d. from her oncologist and I am going to change to [place] 10. No high-grade fever or chills. Denied any nausea or vomiting. Does get short of breath with exertion. V/Q scan results reviewed and discussed with the patient and her daughter. OBJECTIVE: Her vital signs noted. Neck: Supple. No JVD. Lungs: A few basilar crepitations. Heart: S1 and S2 heard. Abdomen: Soft, globular. Bowel sounds present. Extremities: No cyanosis, clubbing. No acute DVT. FEATHER WASHER: Alert, awake. Able to move all 4 limbs. Laboratory Data: Ordered for this morning. Results are pending. I am going to continue IV antibiotics. We will follow culture results. Gave her IV Lasix. Continue rest of the treatment and close observation. PROBLEM LIST: Includes: 1. Urinary tract infection. 2. Congestive heart failure. 3. Hypertension, improved. 4. Elevated D-dimer but V/Q negative for pulmonary embolism. 5. Rhinitis. 6. The patient does have a history of hypomagnesemia. I am going to check magnesium level. 7. History of diabetes. 8. Peripheral neuropathy, on Lyrica. Overall plan discussed. cc: Scooter Infante MD
[2019-11-12 07:32] LABS: BASO# 0.03 X1000 (0.0-0.2); BASO% 0.4 % (0.0-0.8); EOS# 0.15 X1000 (0.0-0.7); EOS% 2.1 % (0.0-10.0); HEMATOCRIT 29.7 % (37.0-47.0); LYMPH# 3.35 X1000 (1.2-3.4); LYMPH% 46.7 % (20.5-51.1); MCH 27.6 PG (27-31); MCHC 30.3 g/dL (33-37); MCV 91.1 FL (81-99); MONO# 0.33 X1000 (0.11-0.59); MONO% 4.6 % (1.7-9.3); NEUT# 3.31 X1000 (1.4-6.5); NEUT% 46.2 % (42.2-75.2); PLT 151 X1000 (130-400); RBC 3.26 XMIL (4.2-5.4); RDW 15.9 % (11.5-14.5); WBC 7.17 X1000 (4.8-10.8)
[2019-11-12 07:44] LABS: HEMOGLOBIN A1C 5.6 % (4.8-6.0)
[2019-11-12 07:56] LABS: ALB/GLOB RATIO 1.2; ALBUMIN 3.1 g/dL (3.5-5.0); CALCIUM 8.6 mg/dL (8.8-10.2); CREATININE 1.6 mg/dL (0.5-0.9); MAGNESIUM 1.4 mg/dL (1.5-2.7); POTASSIUM 4.4 mmol/L (3.5-5.1); TOTAL BILIRUBIN 0.3 mg/dL (0.20-1.00); TOTAL PROTEIN 5.7 g/dL (6.3-8.3)
[2019-11-12 08:03] LABS: FREE T4 1.43 ng/dL (0.93-1.70); TSH 0.63 uIUmL (0.27-4.20)
[2019-11-12] MEDS ORDERED: MAG-OX PO SCH (09:00)
[2019-11-12] MEDS ORDERED: LASIX IV ONE (09:00)
[2019-11-12] MEDS: NORCO-10 PO SCH ×2 (09:02→20:16)
[2019-11-12] MEDS: LYRICA PO SCH ×2 (09:04→20:16)
[2019-11-12] MEDS: SINGULAIR PO SCH (09:04)
[2019-11-12] MEDS: LOPRESSOR PO SCH ×2 (09:04→20:16)
[2019-11-12] MEDS: ASPIRIN PO SCH (09:04)
[2019-11-12] MEDS ORDERED: ZOFRAN IV PRN (12:14)
[2019-11-12] MEDS: ROCEPHIN 1 GM in NS 50 ML IV SCH (17:30)
[2019-11-12] MEDS: FERROUS SULFATE PO SCH (20:16)
[2019-11-13] MEDS: COZAAR PO SCH ×2 (06:39→10:14)
[2019-11-13] MEDS: PRILOSEC PO SCH (06:39)
[2019-11-13] MEDS: SYNTHROID PO SCH (06:39)
[2019-11-13] MEDS: ARICEPT PO SCH ×2 (06:40→10:15)
--- NOTE | 2019-11-13 07:44 | PROGRESS NOTE ---
DATE: 11/13/2019 SUBJECTIVE: Ms. Bernal is doing better. She denied any high-grade fever or chills. Complaining of soreness in the left leg. No leg swelling. Yesterday, the patient did have some nausea. We treated her symptomatically. Her urine culture is growing gram-negative rods. ID and sensitivity is pending. OBJECTIVE: Vital Signs: Noted. Neck: Supple. No JVD. Lungs: Bilateral good air entry present. CVS: S1 and S2 heard. Abdomen: Soft, globular. Bowel sounds present. Extremities: No cyanosis, clubbing. No acute DVT. CLINICAL APPLICATION SPECIALIST: Alert, awake, able to move all 4 limbs. ASSESSMENT: 1. Urinary tract infection. 2. Systolic congestive heart failure. 3. Diabetes mellitus. 4. Hypertension. 5. Peripheral neuropathy. The patient's daughter was present. I am going to get Physical Therapy evaluation. Continue the rest of the treatment. Close observation. cc: Scooter Infante MD
[2019-11-13] MEDS ORDERED: MAGNESIUM SULFATE 2 GM/S.W.I. 2 GM/50 ML IVPB IV ONE (08:00)
[2019-11-13] MEDS: NORCO-10 PO SCH ×2 (10:13→21:03)
[2019-11-13] MEDS: SINGULAIR PO SCH (10:14)
[2019-11-13] MEDS: LOPRESSOR PO SCH ×3 (10:14→21:03)
[2019-11-13] MEDS: LYRICA PO SCH ×2 (10:14→21:02)
[2019-11-13] MEDS: JANUVIA PO SCH (10:15)
[2019-11-13] MEDS: ASPIRIN PO SCH (10:15)
[2019-11-13] MEDS: MAG-OX PO SCH ×2 (10:15→21:03)
[2019-11-13] MEDS: LASIX PO SCH ×2 (10:16→21:03)
[2019-11-13] MEDS ORDERED: MILK OF MAGNESIA PO PRN (17:20)
[2019-11-13] MEDS: ROCEPHIN 1 GM in NS 50 ML IV SCH (17:29)
[2019-11-13] MEDS: FERROUS SULFATE PO SCH (21:03)
[2019-11-14] MEDS ORDERED: MAGNESIUM SULFATE 2 GM/S.W.I. 2 GM/50 ML IVPB IV ONE (06:25)
[2019-11-14] MEDS: PRILOSEC PO SCH (06:31)
[2019-11-14] MEDS: SYNTHROID PO SCH (06:32)
--- NOTE | 2019-11-14 07:40 | PROGRESS NOTE ---
DATE: 11/14/2019 SUBJECTIVE: Ms. Bernal is doing better. Complaining of pain in the leg. No nausea or vomiting. Oral intake is fair. The patient had good bowel movement yesterday. No chest pain or palpitations. No leg swelling. Denied any joint swelling. OBJECTIVE: Vital signs: Noted. Neck: Supple. No JVD. Lungs: Bilateral good air entry present. CVS: S1 and S2 heard. 2/6 systolic murmur at the apex. Abdomen: Soft, nontender. Bowel sounds present. DIE MAKER TRIM: Alert, awake, able to move all 4 limbs. Patient does have diffuse tenderness all over but no acute synovitis. Labs ordered for this morning: Results are pending. CONSIDERATION: The patient admitted with uncompensated systolic heart failure. I am going to get echocardiogram for further evaluation. The patient does have a UTI, history of [place] cell cancer on the scalp, history of breast cancer, osteoarthritis. PLAN: Continue physical therapy. IV antibiotics. Close observation. Overall plan discussed with the patient. She is in agreement. She does have an IDDM. Her magnesium was low. I did supplement. I am going to give her 1 dose of magnesium today. cc: Scooter Infante MD
[2019-11-14] MEDS ORDERED: VITAMIN D PO SCH (09:00)
[2019-11-14] MEDS: MAG-OX PO SCH ×2 (09:50→21:34)
[2019-11-14] MEDS: LYRICA PO SCH (09:50)
[2019-11-14] MEDS: JANUVIA PO SCH (09:51)
[2019-11-14] MEDS: ASPIRIN PO SCH (09:51)
[2019-11-14] MEDS: LASIX PO SCH ×2 (09:51→21:34)
[2019-11-14] MEDS: SINGULAIR PO SCH (09:51)
[2019-11-14] MEDS: COZAAR PO SCH (09:51)
[2019-11-14] MEDS: ARICEPT PO SCH (09:51)
[2019-11-14] MEDS: LOPRESSOR PO SCH ×2 (09:51→21:34)
[2019-11-14] MEDS: NORCO-10 PO SCH ×2 (09:52→21:33)
[2019-11-14] MEDS: VITAMIN D PO SCH (10:14)
[2019-11-14 10:57] LABS: BASO# 0.03 X1000 (0.0-0.2); BASO% 0.4 % (0.0-0.8); EOS# 0.29 X1000 (0.0-0.7); EOS% 3.4 % (0.0-10.0); HEMATOCRIT 36.5 % (37.0-47.0); HEMOGLOBIN 11.1 g/dL (12.0-16.0); LYMPH# 3.62 X1000 (1.2-3.4); LYMPH% 42.9 % (20.5-51.1); MCH 28.1 PG (27-31); MCHC 30.4 g/dL (33-37); MCV 92.4 FL (81-99); MONO# 0.48 X1000 (0.11-0.59); MONO% 5.7 % (1.7-9.3); MPV 10.9 FL (7.4-10.4); NEUT# 4.02 X1000 (1.4-6.5); NEUT% 47.6 % (42.2-75.2); PLT 153 X1000 (130-400); RBC 3.95 XMIL (4.2-5.4); RDW 15.7 % (11.5-14.5); WBC 8.44 X1000 (4.8-10.8)
[2019-11-14 11:26] LABS: ALB/GLOB RATIO 1.2; ALBUMIN 3.3 g/dL (3.5-5.0); CALCIUM 8.5 mg/dL (8.8-10.2); CREATININE 1.6 mg/dL (0.5-0.9); MAGNESIUM 2.7 mg/dL (1.5-2.7); POTASSIUM 4.2 mmol/L (3.5-5.1); TOTAL BILIRUBIN 0.19 mg/dL (0.20-1.00); TOTAL PROTEIN 6.1 g/dL (6.3-8.3)
--- NOTE | 2019-11-14 16:01 | ECHO REPORT ---
ORDER DATE: 11/14/2019 INTERPRETING PHYSICIAN: Ant Rivera MD ECHOCARDIOGRAPHIC MEASUREMENTS: 1. Interventricular septum 1.1. 2. Left ventricular posterior wall 1.0. 3. Diastolic diameter 3.9. 4. Left atrium 4.2. 5. Aorta 2.9. SUMMARY OF 2 DIMENSIONAL IMAGIN. Aortic valve leaflets are severely calcified. 2. Mitral valve was normal. There is moderate to severe mitral annular calcification. 3. Tricuspid valve was normal. 4. Normal left ventricular cavity size. Estimated ejection fraction of 65%. There is grade 3 diastolic dysfunction. 5. There is moderate tricuspid regurgitation. Peak velocity across the tricuspid valve was 3.4 m/sec. Pulmonary artery systolic pressure of 60 mmHg. 6. There is moderate biatrial enlargement. 7. Peak velocity across the aortic valve was 2.5 m/sec with a mean gradient of 16 mmHg with a maximum gradient of 26 mmHg. Aortic valve area of 0.9 squared cm. There is likely low-flow low gradient severe aortic stenosis associated with moderate aortic regurgitation.Recommend ABRAHAN if clinically indicated to evaluate . 8. There is no pericardial effusion, obvious intracardiac mass, or thrombus seen. cc: MD Scooter Barrera MD [facility]
[2019-11-14] MEDS: ROCEPHIN 1 GM in NS 50 ML IV SCH (16:57)
[2019-11-14] MEDS: FERROUS SULFATE PO SCH (21:34)
[2019-11-15] MEDS: LYRICA PO SCH ×2 (05:54→08:56)
[2019-11-15] MEDS: PRILOSEC PO SCH (06:23)
[2019-11-15] MEDS: SYNTHROID PO SCH (06:23)
--- NOTE | 2019-11-15 08:39 | PROGRESS NOTE ---
DATE: 11/15/2019 SUBJECTIVE: Ms Bernal is doing better. She denied any shortness of breath. No fever or chills. No chest pain. She does have leg pain, which she has it all the time. Oral intake seems to be improving. Leg swelling improved. OBJECTIVE: Vital Signs: Noted. Neck: Supple. No JVD. Lungs: Bilateral good air entry present. Cardiovascular: S1 and S2 heard. Abdomen: Soft, globular. Bowel sounds present. Extremities: No cyanosis, clubbing. Leg swelling improved. 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 CONSIDERATION: 1. The patient admitted with uncompensated diastolic heart failure, found to have urinary tract infection, elevated D-dimer but pulmonary embolism ruled out by negative VQ. 2. Patient does have a history of breast cancer. 3. Hypothyroidism doing well. 4. Gastritis and reflux disease. 5. Hypomagnesemia. PLAN: Overall patient is doing better. Her urine culture result is reviewed. I am going to send her home on Rocephin IM or IV. Patient will be benefitted from home health. Overall discharge plan discussed at length with the patient's daughter. Follow up with me 1 week. Fall precaution. Discharge medication explained. cc: Scooter Infante MD
[2019-11-15] MEDS: MAG-OX PO SCH (08:55)
[2019-11-15] MEDS: LASIX PO SCH (08:55)
[2019-11-15] MEDS: JANUVIA PO SCH (08:55)
[2019-11-15] MEDS: ARICEPT PO SCH (08:55)
[2019-11-15] MEDS: SINGULAIR PO SCH (08:55)
[2019-11-15] MEDS: NORCO-10 PO SCH (08:55)
[2019-11-15] MEDS: ASPIRIN PO SCH (08:55)
[2019-11-15] MEDS: VITAMIN D PO SCH (08:56)
[2019-11-15] MEDS: COZAAR PO SCH (08:56)
[2019-11-15] MEDS: LOPRESSOR PO SCH (08:57)
[2019-11-15 13:40] VITALS: BP 93/35
[2019-11-15] MEDS: ROCEPHIN 1 GM in NS 50 ML IV SCH (16:15)
--- NOTE | 2019-11-16 20:56 | DISCHARGE SUMMARY ---
ADMISSION DATE: 11/11/2019 DISCHARGE DATE: 11/15/2019 FINAL DISCHARGE DIAGNOSES: 1. Uncompensated diastolic heart failure. 2. Urinary tract infection. 3. History of breast cancer. 4. [place] cell cancer. 5. Gastritis and reflux disease. 6. Hypothyroidism. 7. Hypomagnesemia. 8. Dementia. 9. Iron-deficiency anemia. 10. Rhinitis. 11. Peripheral neuropathy. 12. Noninsulin dependent diabetes mellitus. HISTORY: Ms. Bernal, 88-year-old white female patient, came to the emergency room with history of shortness of breath. The patient was gasping for air, not able to speak full sentences, decreased exercise tolerance, vague chest pain. The patient was evaluated in the ER. Her proBNP was elevated. The patient's D-dimer was also elevated. The patient had V/Q scan done. It was negative for pulmonary embolism. The rest of the information from admission history and physical. HOSPITAL COURSE: Patient was given IV Lasix and then we changed to p.o. Lasix. She was treated with IV Rocephin for urinary tract infection. We continued her home medicine. Hypomagnesemia replaced with IV magnesium supplement and then p.o. The patient's clinical condition improved and stabilized. The patient did have leg pain, and we continued her pain medication. Overall, patient is doing better. She received maximum benefit of hospitalization. I did evaluate her for home oxygen need, and patient did qualify for the same. I did arrange for home oxygen. The patient was discharged home today for home oxygen. We got her home health for physical therapy. Overall discharge condition was satisfactory. Discharge plan discussed at length with patient and family, and they are in agreement. LABORATORY DATA: Revealed leukocyte count of 8.44, hemoglobin 11.1, hematocrit 36.5 and platelet count 153,000. Electrolytes: BUN was 17, creatinine 1.6. Her cardiac isoenzymes were negative. Urinalysis: Too numerous to count WBCs, 4+ bacteria. Urine culture grew Enterobacter cloacae, which was sensitive to Rocephin. The patient had chest x-ray done. Results reviewed. Echocardiogram done, which revealed diastolic dysfunction. Ejection fraction was 65%. Patient was discharged with 2 days of IM Rocephin, Lasix 40 mg twice a day, magnesium supplement. Home health to check blood on Tuesday. Follow up with me in 1 week. In case of more distress, call us back or go to emergency room. cc: Scooter Infante MD
== END 2019-11-15 17:06 | disposition home health service (06) | DRG 292 ==
LOC: ED 14:09 → EDIPHOLD 17:44 → 3N 19:02
PROVIDERS: ADMIT Internal Medicine; ATTEND Internal Medicine